=== PATIENT | female | born 1950 | race Caucasian/White ===

== ENCOUNTER → 2018-08-31 11:09 | Outpatient (CLI) | payer MEDICARE, BC, SELFPAY ==
[2018-08-31 12:23] LABS: Alanine Aminotransferase 23 IU/L (9-52); Albumin 4.1 g/dL (3.5-5.0); Albumin Globulin Ratio 1.4 (1.0-2.8); Alkaline Phosphatase 99 U/L (38-126); Aspartate Aminotransferase 25 IU/L (14-36); BUN Creatinine Ratio 18.9 (6-22); Bilirubin Total 0.8 mg/dL (0.2-1.3); Blood Urea Nitrogen 17 mg/dL (7-17); Calcium 9.6 mg/dL (8.4-10.2); Carbon Dioxide 33 mmol/L (22-32); Chloride 99 mmol/L (98-107); Cholesterol 146 mg/dL (140-199); Estimated Glomerular Filt Rate > 60.0 mL/min (>60); Globulin 2.9 g/dL (1.7-4.1); Glucose 107 mg/dL (80-110); HDL Cholesterol 40 mg/dL (40-60); HEMOLYSIS < 15 (0-50); LDL Cholesterol Calculated 82 mg/dL (<100); Potassium 3.7 mmol/L (3.4-5.1); Sodium 140 mmol/L (137-145); Triglycerides 120 mg/dL (35-150)
[2018-08-31 12:29] LABS: Hemoglobin A1C% w Est Avg Glu 5.7 % (4.0-6.0)
[2018-08-31 12:39] LABS: Creatinine Urine Random 337.9 mg/dL
[2018-08-31 12:42] LABS: Microalbumi Creatinin Ratio Ur 2.3 ug/mg CR (<30); Microalbumin Urine Random 0.8 mg/dL (0-1.6)
[2018-08-31 19:29] LABS: Free T4, Direct Thyroxine 1.76 ng/dL (0.78-2.19)
[2018-08-31 19:43] LABS: Thyroid Stimulating Hormone 3.15 uIU/mL (0.47-4.68)
== END ==
PROVIDERS: PCP Physician Assistant; Visit Provider Physician Assistant
DX: E03.9 Hypothyroidism, unspecified (principal); I10 Essential (primary) hypertension; R73.02 Impaired glucose tolerance (oral)
CPT/HCPCS: 36415; 80053; 80061; 82043; 82570; 83036; 84439; 84443

== ENCOUNTER → 2018-09-24 13:45 | Outpatient (CLI) | payer MEDICARE, BC, SELFPAY ==
--- NOTE | 2018-09-24 | DI.MG.S_ITS ---
BILATERAL DIGITAL SCREENING MAMMOGRAM 3D/2D WITH CAD: 09/24/2018 CLINICAL: Routine screening. Family history of breast cancer. Comparison is made to exams dated: 08/24/2017 mammogram, 08/20/2016 mammogram, and 11/05/2015 mammogram - [facility]. There are scattered fibroglandular elements in both breasts. Current study was also evaluated with a Computer Aided Detection (CAD) system. No significant masses, calcifications, or other findings are seen in either breast. There has been no significant interval change. IMPRESSION: NEGATIVE There is no mammographic evidence of malignancy. A 1 year screening mammogram is recommended. This exam was interpreted at Station ID: [id number]. NOTE: For mammograms, a report in lay terms will be sent to the patient. Approximately 15% of breast malignancies will not be visualized mammographically. In the management of a palpable breast mass, a negative mammogram must not discourage biopsy of a clinically suspicious lesion. Electronically Signed By: Tariq rondon/manny:09/24/2018 16:37:02 letter sent: Normal Exam ACR BI-RADS Category 1: Negative [id number]
== END ==
PROVIDERS: PCP Physician Assistant; Visit Provider Physician Assistant
DX: Z12.31 Encounter for screening mammogram for malignant neoplasm of breast (principal); Z80.3 Family history of malignant neoplasm of breast
CPT/HCPCS: 77063; 77067

== ENCOUNTER → 2018-10-13 09:21 | Outpatient (CLI) | payer MEDICARE, BC, SELFPAY ==
--- NOTE | 2018-10-13 | DI.CT.S_ITS ---
PROCEDURE: CT LE RT WO CON INDICATIONS: CLOSED FRACTURE OF RIGHT ANKLE WITH DELAYED HEALIN TECHNIQUE: Noncontrast 1-1.5 mm axial sections acquired from above the tibiotalar joint to the bottom of the calcaneus, with coronal and sagittal reformats. COMPARISON: SNO Outside Film, RG, ANKLE MIN 3VW (RT), 06/13/2018, 14:18. SNO Outside Film, RG, ANKLE MIN 3VW (RT), 08/31/2018, 15:12. FINDINGS: Image quality: Diagnostic. Bones: Postoperative changes are present related to previous open reduction and internal fixation procedure involving the distal fibula shaft fracture. Lateral view plate orthopedic plate is secured in place by multiple screws, including a syndesmotic screw. The distal fracture line remains at least partly open. The proximal fracture line is well-visualized with adjacent sclerosis. No definite callus formation is evident. No lucency surrounding the orthopedic screws is appreciated. No fractures are identified. Mild degenerative changes of the tibiotalar joint are noted. No suspicious osseous lesions are identified. Soft tissues: The soft tissues of the ankle are within normal limits with the exception of subcutaneous edema. No drainable or loculated fluid collections are identified. Please not that the ligamentous, tendinous, and cartilaginous structures of the ankle are not adequately evaluated on CT. There may be mild enlargement of the peroneal tendons. No muscle atrophy is evident. No soft tissue masses are evident. IMPRESSION: 1. Unchanged alignment of a complex distal tibial fracture, status post ORIF. The orthopedic hardware is intact. Fracture lines remain apparent without significant callus formation. 2. Mild thickening of the peroneal tendons may be related to tendinopathy. Dictated by: Ruddy Ulrich M.D. on 10/13/2018 at 13:22 Approved by: Ruddy Ulrich M.D. on 10/13/2018 at 13:40
== END ==
PROVIDERS: PCP Physician Assistant; Visit Provider Orthopaedic Surgery Foot and Ankle Surgery
DX: S82.391G Other fracture of lower end of right tibia, subsequent encounter for closed fracture with delayed healing (principal)
CPT/HCPCS: 73700

== ENCOUNTER → 2018-11-01 12:00 | Outpatient (CLI) | payer MEDICARE, BC, SELFPAY ==
[2018-11-01 12:57] LABS: Add Manual Diff / Slide Review NO; Basophils Percent Auto 1.3 % (0-2); Eosinophils Percent Auto 2.6 % (2-4); Hematocrit 38.9 % (36-46); Hemoglobin 13.5 g/dL (12.0-16.0); Lymphocytes Percent Auto 28.8 % (25-40); Mean Corpuscular HGB Conc 34.6 % (30-36); Mean Corpuscular Hemoglobin 32.7 PG (26-34); Mean Corpuscular Volume 94.6 fL (80-100); Monocytes Percent Auto 6.2 % (3-14); Neutrophils Absolute Auto 4200 /uL (3000-5900); Neutrophils Percent Auto 61.1 % (50-75); Platelet Count 337 X10^3/uL (150-400); Red Blood Cell Count 4.11 X10^6/uL (4.0-5.2); Red Cell Distribution Width 13.1 % (11.6-14.8); White Blood Cell Count 6.9 X10^3/uL (4.5-11.0)
[2018-11-01 13:12] LABS: BUN Creatinine Ratio 22.2 (6-22); Blood Urea Nitrogen 20 mg/dL (7-17); Calcium 9.7 mg/dL (8.4-10.2); Carbon Dioxide 30 mmol/L (22-32); Chloride 100 mmol/L (98-107); Estimated Glomerular Filt Rate > 60.0 mL/min (>60); Glucose 104 mg/dL (80-110); HEMOLYSIS < 15 (0-50); Sodium 143 mmol/L (137-145)
[2018-11-01 13:14] LABS: C-Reactive Protein Quant < 0.5 mg/dL (<1.0)
[2018-11-01 13:33] LABS: Erythrocyte Sedimentation Rate 17 MM/HR (0-20)
== END ==
PROVIDERS: PCP Physician Assistant; Visit Provider Physician Assistant
DX: Z01.818 Encounter for other preprocedural examination (principal)
CPT/HCPCS: 36415; 80048; 85025; 85651; 86140; 93005; 93010

== ENCOUNTER 2018-11-19 12:41 | Emergency (ER) | payer MEDICARE, BC, SELFPAY ==
[2018-11-19 12:59] VITALS: BP 140/88; PULSE 67; RESP 20; TEMP 36.9; O2SAT 99
--- NOTE | 2018-11-19 13:08 | ED.ARRPALP ---
HPI - Arrhythmia/Palpitations General Chief Complaint: Arrhythmia/Palpitations Stated Complaint: HEART RACING Time Seen by Provider: 11/19/18 13:06 Source: patient, family (daughter) and old records reviewed Mode of arrival: ambulatory Limitations: no limitations History of Present Illness HPI narrative: This is a 68-year-old female comes to the emergency department with complaint of palpitations. Patient states she was checking in to get an echo for medical clearance for replacement of a plate and bone graft in her lower extremity. Her surgery scheduled for December 01 she is supposed to see her regular engine turner Dr. Hanks on the , she had an EKG on Thursday and was supposed to have an echo today. Patient was told she was scheduled by the engine turner office but when she came in she is not on the schedule here at the hospital. She states she was sitting she felt warm all over, she got very stressed and frustrated felt like she was having a pounding in her chest and a little short of breath. Patient states it lasted about 15-20 minutes. She began to calm herself which she states is what she normally does any situations and it resolved patient states she has had these symptoms in the past she has had episodes about every 6 months or so. Typically when she is stressed or anxious does not seem to be associated with exertion or if she is sitting or other events. She states she does have a cardiac stent about 20 years ago. At that time she had a feeling of heartburn for about 4 days, had angioplasty and was stented. She still taken aspirin 81 mg, thyroid medication. She recently had her atenolol DC secondary to low heart rate takes lisinopril, potassium and Prozac. Patient states she has a family history of her dad having an MD at the age of 54. The patient denies any chest pain or pressure today. She did not feel she was going to pass out. Her daughter states she looked pale. Related Data Home Medications Medication Instructions Recorded Confirmed aspirin 81 mg PO QPM #0 05/05/17 11/19/18 multivitamin [Multiple Vitamins] 1 tab PO QDAY #0 05/05/17 11/19/18 omega 2-qwu-sdy-fish oil [Fish Oil] 1,000 mg PO DAILY #0 05/05/17 11/19/18 [calcium/ D3] 1 tab PO Q DAY #0 06/25/17 11/19/18 levothyroxine 88 mcg PO DAILY 11/19/18 11/19/18 lisinopril 20 mg PO QPM 11/19/18 11/19/18 Previous Rx's Medication Instructions Recorded atorvastatin 80 mg PO HS #90 tab 08/03/17 fluoxetine 40 mg capsule 40 mg PO QDAY #30 cap 08/30/18 potassium chloride ER 10 mEq 10 meq PO BID #60 tab 08/30/18 tablet,extended release varicella-zoster glycoE [id number] 50 mcg IM ONCE #1 each 09/22/18 adj(PF) 50 mcg/0.5 mL IM susp, kit Allergies Allergy/AdvReac Type Severity Reaction Status Date / Time No Known Drug Allergies Allergy Unverified 11/01/18 11:13 Review of Systems Review of Systems All systems reviewed & are unremarkable except as noted in HPI and below Constitutional Denies chills, Denies excessive sweating and Reports other (pale) Cardiovascular Denies chest pain, Denies chest pain at rest, Denies chest pain with activity, Reports diaphoresis, Denies syncope, Reports rapid heart rate (pounding heart rate), Denies edema, Denies irregular heart rhythm, Denies leg edema, Denies lightheadedness, Denies radiating jaw, neck or arm pain, Denies palpitations, Reports dyspnea and Denies orthopnea Respiratory Denies change in phlegm color, Denies chest congestion, Denies cough, Denies excessive phlegm production and Reports dyspnea Gastrointestinal Gastrointestinal: Denies abdominal pain, Denies change in bowel habits, Denies diarrhea, Denies nausea and Denies vomiting Genitourinary Denies hematuria, Denies dysuria, Denies flank pain and Denies urinary urgency Neurologic Denies syncope Endocrine Denies excessive sweating and Denies palpitations [facility] Medical History Diverticulosis of colon without diverticulitis (Chronic 04/27/17) Hypertension (Chronic) Hypothyroidism (Chronic) Internal hemorrhoids (Chronic 04/27/17) Ankle fracture, right (Resolved 06/13/18) Colon polyps (Resolved 04/27/17) Surgical History History of colonoscopy (Resolved 2006) History of colonoscopy (Resolved 04/27/17) History of ear surgery (Resolved 1996) History of heart artery stent (Resolved 11/1997) History of hysterectomy (Resolved 05/1994) Status post open reduction with internal fixation (ORIF) of fracture of ankle (Resolved 06/15/18) Family History Father Heart attack Grandmother Heart disease Mother Cancer Grandfather Pneumonia Grandmother Cancer Sister No problems noted. Social History Smoking Status: Former smoker (Quit in 1994) Tobacco: How many years used: 30 second hand exposure: No alcohol intake: current (a glass of wine occasionally.) substance use type: does not use Exam Narrative Exam Narrative: GENERAL: Alert and oriented x three, well-nourished, well-appearing female in mild distress. HEENT: Head normocephalic, atraumatic, EOMI, pupils reactive, face symmetric, moist mucous membranes NECK: Supple, full range of motion CARDIOVASCULAR: Regular rate and rhythm without murmurs, rubs or gallops. RESPIRATORY: Breath sounds equal bilaterally, no wheezes rales or rhonchi. ABDOMEN: Soft, nontender. Normoactive bowel sounds all 4 quadrants. No guarding or rebound, rigidity, no mass : No CVA tenderness EXTREMITIES: Normal range of motion, no clubbing or edema. Neurovascularly intact NEUROLOGICAL: Cranial nerves II through XII grossly intact. Moving all extremities SKIN: Warm, dry, no petechiae, no rashes or lesions. Initial Vital Signs Initial Vital Signs: Vital Signs Temperature 98.4 F 11/19/18 12:59 Pulse Rate 67 11/19/18 12:59 Respiratory Rate 20 11/19/18 12:59 Blood Pressure 140/88 11/19/18 12:59 Pulse Oximetry 99 11/19/18 12:59 Course Orders Ordered: ED Orders 11/19/18 13:18 XR chest 1V Stat EKG-12 Lead Stat 11/19/18 13:40 Complete Blood Count AUTO DIFF Stat Comprehensive Metabolic Panel Stat Free T4 Free Thyroxine Stat Lipase Stat Magnesium Stat Partial Thromboplastin Time Stat Prothrombin Time INR Stat Thyroid Stimulating Hormone Stat Troponin & CK Cardiac Panel Stat Discontinued Medications Aspirin (Aspirin Chew) 324 mg PO NOW ONE Stop: 11/19/18 13:18 Last Admin: 11/19/18 13:25 Dose: 324 mg Vital Signs - 8 hr 11/19/18 12:59 11/19/18 13:48 11/19/18 14:48 Temperature 98.4 F Pulse Rate 67 60 56 L Respiratory Rate 20 21 20 Blood Pressure 140/88 Blood Pressure [Left Arm] 127/56 L 126/67 Pulse Oximetry 99 100 100 11/19/18 15:00 Temperature Pulse Rate 65 Respiratory Rate 16 Blood Pressure 126/67 Blood Pressure [Left Arm] Pulse Oximetry 98 MDM - Arrhythmia/Palpitations Lab Data Result diagrams: 11/19/18 13:40 11/19/18 13:40 Lab Results 11/19/18 11/19/18 11/19/18 Range/Units 13:40 13:40 13:40 WBC 8.4 (4.5-11.0) X10^3/uL RBC 3.75 L (4.0-5.2) X10^6/uL Hgb 12.3 (12.0-16.0) g/dL Hct 35.4 L (36-46) % MCV 94.4 (80-100) fL MCH 32.8 (26-34) PG MCHC 34.7 (30-36) % RDW 13.1 (11.6-14.8) % Plt Count 269 (150-400) X10^3/uL Neut % (Auto) 70.8 (50-75) % Lymph % (Auto) 14.6 L (25-40) % [place] % (Auto) 7.9 (3-14) % Eos % (Auto) 5.5 H (2-4) % Baso % (Auto) 1.2 (0-2) % Neut # (Auto) 5900 (4012-8212) /uL PT 10.9 (10.1-12.7) SECONDS INR 1.0 (0.9-1.3) APTT 30 (26.4-36.2) SECONDS Sodium 142 (137-145) mmol/L Potassium 4.1 (3.4-5.1) mmol/L Chloride 105 (98-107) mmol/L Carbon Dioxide 26 (22-32) mmol/L BUN 17 (7-17) mg/dL Creatinine 0.80 (0.52-1.04) mg/dL Estimated GFR > 60.0 (>60) mL/min BUN/Creatinine Ratio 21.3 (6-22) Glucose 97 (80-110) mg/dL Calcium 9.1 (8.4-10.2) mg/dL Magnesium 2.2 (1.6-2.3) mg/dL Total Bilirubin 0.4 (0.2-1.3) mg/dL AST 28 (14-36) IU/L ALT 26 (9-52) IU/L Alkaline Phosphatase 94 (38-126) U/L Total Creatine Kinase 75 (30-135) U/L CK-MB (CK-2) TNP CK-MB (CK-2) Rel Index TNP Troponin I < 0.012 (0.01-0.034) ng/mL Total Protein 6.6 (6.3-8.2) g/dL Albumin 3.9 (3.5-5.0) g/dL Globulin 2.7 (1.7-4.1) g/dL Albumin/Globulin Ratio 1.4 (1.0-2.8) Lipase 164 (23-300) U/L TSH (0.47-4.68) uIU/mL Free T4 (0.78-2.19) ng/dL 11/19/18 11/19/18 Range/Units 13:40 13:40 WBC (4.5-11.0) X10^3/uL RBC (4.0-5.2) X10^6/uL Hgb (12.0-16.0) g/dL Hct (36-46) % MCV (80-100) fL MCH (26-34) PG MCHC (30-36) % RDW (11.6-14.8) % Plt Count (150-400) X10^3/uL Neut % (Auto) (50-75) % Lymph % (Auto) (25-40) % [place] % (Auto) (3-14) % Eos % (Auto) (2-4) % Baso % (Auto) (0-2) % Neut # (Auto) (7094-0212) /uL PT (10.1-12.7) SECONDS INR (0.9-1.3) APTT (26.4-36.2) SECONDS Sodium (137-145) mmol/L Potassium (3.4-5.1) mmol/L Chloride (98-107) mmol/L Carbon Dioxide (22-32) mmol/L BUN (7-17) mg/dL Creatinine (0.52-1.04) mg/dL Estimated GFR (>60) mL/min BUN/Creatinine Ratio (6-22) Glucose (80-110) mg/dL Calcium (8.4-10.2) mg/dL Magnesium (1.6-2.3) mg/dL Total Bilirubin (0.2-1.3) mg/dL AST (14-36) IU/L ALT (9-52) IU/L Alkaline Phosphatase (38-126) U/L Total Creatine Kinase (30-135) U/L CK-MB (CK-2) CK-MB (CK-2) Rel Index Troponin I (0.01-0.034) ng/mL Total Protein (6.3-8.2) g/dL Albumin (3.5-5.0) g/dL Globulin (1.7-4.1) g/dL Albumin/Globulin Ratio (1.0-2.8) Lipase (23-300) U/L TSH 12.30 H (0.47-4.68) uIU/mL Free T4 1.06 (0.78-2.19) ng/dL Imaging Data Chest x-ray: Radiologist's impression: [place] [address] XRay Report Signed Patient: Debby Boo MR#: [id number] : 1950 Acct:[id number] Age/Sex: 68 / F Date of Service: 11/19/18 Loc: ED Accession Number: [id number] Procedure: XR chest 1V Ordering Provider: Alyssa Butler D.O. PROCEDURE: XR CHEST 1V INDICATIONS: palpitations TECHNIQUE: One view of the chest was acquired. COMPARISON: None. FINDINGS: Surgical changes and devices: None. Lungs and pleura: No pleural effusions or pneumothorax. Lungs are clear. Mediastinum: Mediastinal contours appear normal. Heart size is normal. Bones and chest wall: No suspicious bony lesions. Overlying soft tissues appear unremarkable. IMPRESSION: Mildly reduced inspiratory volume. Dictated by: Moshe Matthews M.D. on 11/19/2018 at 13:47 Approved by: Moshe Matthews M.D. on 11/19/2018 at 13:47 ECG Data Attestation: I personally reviewed and interpreted this ECG as follows: Prior ECG tracings: available for review Interpretation: Sinus rhythm with a rate of 66 P are interval of 188, QRS of 121, QTC of 438. No ST elevation or depression appreciated. Changes with axis deviation patient does have a Q-wave in V1-the 4. Patient has a prior EKG from 11/17/2018 that appears similar except for at lead V6, otherwise there are no changes. Discharge Plan Departure Patient Disposition: Home Clinical Impression: Palpitations Discharge Date/Time: 11/19/18 15:02 Interventions: ED Discharge Assessment Last Done: 11/19/18 15:00 Instructions: DI for Palpitations Activity Restrictions/Additional Instructions: Follow up at you ECHO scheduled on November 25 at 9:[address] Hanks your engine turner office to see if they can readjust your cardiology appointment or schedule your echo at a sooner date. Continue your home medications as prescribed. Return to ER for recurrent symptoms, syncope or passing out, chest pain, shortness of breath, persistent vomiting, black or bloody stools or other new symptoms. Prescriptions: No Action varicella-zoster [id number] (PF) [Shingrix (PF)] 50 mcg/0.5 mL suspension for reconstitution 50 mcg IM ONCE Qty: 1 RF: 1 multivitamin [Multiple Vitamins] 1 EACH tablet 1 tab PO QDAY Qty: 0 RF: 0 aspirin 81 MG tablet,delayed release (DR/EC) 81 mg PO QPM Qty: 0 RF: 0 omega 6-leh-otn-fish oil [Fish Oil] 1,000 MG capsule 1,000 mg PO DAILY Qty: 0 RF: 0 [calcium/ D3] 1 tab PO Q DAY Qty: 0 RF: 0 atorvastatin 80 MG tablet 80 mg PO HS Qty: 90 RF: 1 fluoxetine 40 mg capsule 40 mg PO QDAY Qty: 30 RF: 0 potassium chloride [Klor-Con 10] 10 mEq tablet extended release 10 meq PO BID Qty: 60 RF: 0 lisinopril 20 mg tablet 20 mg PO QPM RF: 0 levothyroxine 88 mcg tablet 88 mcg PO DAILY RF: 0 Referrals: Kaylyn Santos PA-C [Primary Care Provider] - Bryan Hanks MD [Physician] -
--- NOTE | 2018-11-19 13:18 | DI.RAD.S_ITS ---
PROCEDURE: XR CHEST 1V INDICATIONS: palpitations TECHNIQUE: One view of the chest was acquired. COMPARISON: None. FINDINGS: Surgical changes and devices: None. Lungs and pleura: No pleural effusions or pneumothorax. Lungs are clear. Mediastinum: Mediastinal contours appear normal. Heart size is normal. Bones and chest wall: No suspicious bony lesions. Overlying soft tissues appear unremarkable. IMPRESSION: Mildly reduced inspiratory volume. Dictated by: Moshe Matthews M.D. on 11/19/2018 at 13:47 Approved by: Moshe Matthews M.D. on 11/19/2018 at 13:47
[2018-11-19] MEDS: ASPIRIN 81 MG TAB 324 MG PO (13:25)
--- NOTE | 2018-11-19 13:29 | ED_ITS ---
HPI - Arrhythmia/Palpitations General Chief Complaint: Arrhythmia/Palpitations Stated Complaint: HEART RACING Time Seen by Provider: 11/19/18 13:06 Source: patient, family (daughter) and old records reviewed Mode of arrival: ambulatory Limitations: no limitations History of Present Illness HPI narrative: This is a 68-year-old female comes to the emergency department with complaint of palpitations. Patient states she was checking in to get an echo for medical clearance for replacement of a plate and bone graft in her lower extremity. Her surgery scheduled for December 01 she is supposed to see her regular slip cover cutter Dr. Hanks on the , she had an EKG on Thursday and was supposed to have an echo today. Patient was told she was scheduled by the slip cover cutter office but when she came in she is not on the schedule here at the hospital. She states she was sitting she felt warm all over, she got very stressed and frustrated felt like she was having a pounding in her chest and a little short of breath. Patient states it lasted about 15-20 minutes. She began to calm herself which she states is what she normally does any situations and it resolved patient states she has had these symptoms in the past she has had episodes about every 6 months or so. Typically when she is stressed or anxious does not seem to be associated with exertion or if she is sitting or other events. She states she does have a cardiac stent about 20 years ago. At that time she had a feeling of heartburn for about 4 days, had angioplasty and was stented. She still taken aspirin 81 mg, thyroid medication. She recently had her atenolol DC secondary to low heart rate takes lisinopril, potassium and Prozac. Patient states she has a family history of her dad having an [place] at the age of 54. The patient denies any chest pain or pressure today. She did not feel she was going to pass out. Her daughter states she looked pale. Related Data Home Medications Medication Instructions Recorded Confirmed aspirin 81 mg PO QPM #0 05/05/17 11/19/18 multivitamin [Multiple Vitamins] 1 tab PO QDAY #0 05/05/17 11/19/18 omega 2-qoy-odz-fish oil [Fish Oil] 1,000 mg PO DAILY #0 05/05/17 11/19/18 [calcium/ D3] 1 tab PO Q DAY #0 06/25/17 11/19/18 levothyroxine 88 mcg PO DAILY 11/19/18 11/19/18 lisinopril 20 mg PO QPM 11/19/18 11/19/18 Previous Rx's Medication Instructions Recorded atorvastatin 80 mg PO HS #90 tab 08/03/17 fluoxetine 40 mg capsule 40 mg PO QDAY #30 cap 08/30/18 potassium chloride ER 10 mEq 10 meq PO BID #60 tab 08/30/18 tablet,extended release varicella-zoster glycoE [id number] 50 mcg IM ONCE #1 each 09/22/18 adj(PF) 50 mcg/0.5 mL IM susp, kit Allergies Allergy/AdvReac Type Severity Reaction Status Date / Time No Known Drug Allergies Allergy Unverified 11/01/18 11:13 Review of Systems Review of Systems All systems reviewed & are unremarkable except as noted in HPI and below Constitutional Denies chills, Denies excessive sweating and Reports other (pale) Cardiovascular Denies chest pain, Denies chest pain at rest, Denies chest pain with activity, Reports diaphoresis, Denies syncope, Reports rapid heart rate (pounding heart rate), Denies edema, Denies irregular heart rhythm, Denies leg edema, Denies lightheadedness, Denies radiating jaw, neck or arm pain, Denies palpitations, Reports dyspnea and Denies orthopnea Respiratory Denies change in phlegm color, Denies chest congestion, Denies cough, Denies excessive phlegm production and Reports dyspnea Gastrointestinal Gastrointestinal: Denies abdominal pain, Denies change in bowel habits, Denies diarrhea, Denies nausea and Denies vomiting Genitourinary Denies hematuria, Denies dysuria, Denies flank pain and Denies urinary urgency Neurologic Denies syncope Endocrine Denies excessive sweating and Denies palpitations [facility] Medical History Diverticulosis of colon without diverticulitis (Chronic 04/27/17) Hypertension (Chronic) Hypothyroidism (Chronic) Internal hemorrhoids (Chronic 04/27/17) Ankle fracture, right (Resolved 06/13/18) Colon polyps (Resolved 04/27/17) Surgical History History of colonoscopy (Resolved 2006) History of colonoscopy (Resolved 04/27/17) History of ear surgery (Resolved 1996) History of heart artery stent (Resolved 11/1997) History of hysterectomy (Resolved 05/1994) Status post open reduction with internal fixation (ORIF) of fracture of ankle ( Resolved 06/15/18) Family History Father Heart attack Grandmother Heart disease Mother Cancer Grandfather Pneumonia Grandmother Cancer Sister No problems noted. Social History Smoking Status: Former smoker (Quit in 1994) Tobacco: How many years used: 30 second hand exposure: No alcohol intake: current (a glass of wine occasionally.) substance use type: does not use Exam Narrative Exam Narrative: GENERAL: Alert and oriented x three, well-nourished, well- appearing female in mild distress. HEENT: Head normocephalic, atraumatic, EOMI, pupils reactive, face symmetric, moist mucous membranes NECK: Supple, full range of motion CARDIOVASCULAR: Regular rate and rhythm without murmurs, rubs or gallops. RESPIRATORY: Breath sounds equal bilaterally, no wheezes rales or rhonchi. ABDOMEN: Soft, nontender. Normoactive bowel sounds all 4 quadrants. No guarding or rebound, rigidity, no mass : No CVA tenderness EXTREMITIES: Normal range of motion, no clubbing or edema. Neurovascularly intact NEUROLOGICAL: Cranial nerves II through XII grossly intact. Moving all extremities SKIN: Warm, dry, no petechiae, no rashes or lesions. Initial Vital Signs Initial Vital Signs: Vital Signs Temperature 98.4 F 11/19/18 12:59 Pulse Rate 67 11/19/18 12:59 Respiratory Rate 20 11/19/18 12:59 Blood Pressure 140/88 11/19/18 12:59 Pulse Oximetry 99 11/19/18 12:59 Course Orders Ordered: ED Orders 11/19/18 13:18 XR chest 1V Stat EKG-12 Lead Stat 11/19/18 13:40 Complete Blood Count AUTO DIFF Stat Comprehensive Metabolic Panel Stat Free T4 Free Thyroxine Stat Lipase Stat Magnesium Stat Partial Thromboplastin Time Stat Prothrombin Time INR Stat Thyroid Stimulating Hormone Stat Troponin & CK Cardiac Panel Stat Discontinued Medications Aspirin (Aspirin Chew) 324 mg PO NOW ONE Stop: 11/19/18 13:18 Last Admin: 11/19/18 13:25 Dose: 324 mg Vital Signs - 8 hr 11/19/18 12:59 11/19/18 13:48 11/19/18 14:48 Temperature 98.4 F Pulse Rate 67 60 56 L Respiratory Rate 20 21 20 Blood Pressure 140/88 Blood Pressure [Left Arm] 127/56 L 126/67 Pulse Oximetry 99 100 100 11/19/18 15:00 Temperature Pulse Rate 65 Respiratory Rate 16 Blood Pressure 126/67 Blood Pressure [Left Arm] Pulse Oximetry 98 MDM - Arrhythmia/Palpitations Lab Data Result diagrams: 11/19/18 13:40 11/19/18 13:40 Lab Results 11/19/18 11/19/18 11/19/18 Range/Units 13:40 13:40 13:40 WBC 8.4 (4.5-11.0) X10^3/uL RBC 3.75 L (4.0-5.2) X10^6/uL Hgb 12.3 (12.0-16.0) g/dL Hct 35.4 L (36-46) % MCV 94.4 (80-100) fL MCH 32.8 (26-34) PG MCHC 34.7 (30-36) % RDW 13.1 (11.6-14.8) % Plt Count 269 (150-400) X10^3/uL Neut % (Auto) 70.8 (50-75) % Lymph % (Auto) 14.6 L (25-40) % Person % (Auto) 7.9 (3-14) % Eos % (Auto) 5.5 H (2-4) % Baso % (Auto) 1.2 (0-2) % Neut # (Auto) 5900 (2974-0039) /uL PT 10.9 (10.1-12.7) SECONDS INR 1.0 (0.9-1.3) APTT 30 (26.4-36.2) SECONDS Sodium 142 (137-145) mmol/L Potassium 4.1 (3.4-5.1) mmol/L Chloride 105 (98-107) mmol/L Carbon Dioxide 26 (22-32) mmol/L BUN 17 (7-17) mg/dL Creatinine 0.80 (0.52-1.04) mg/dL Estimated GFR > 60.0 (>60) mL/min BUN/Creatinine Ratio 21.3 (6-22) Glucose 97 (80-110) mg/dL Calcium 9.1 (8.4-10.2) mg/dL Magnesium 2.2 (1.6-2.3) mg/dL Total Bilirubin 0.4 (0.2-1.3) mg/dL AST 28 (14-36) IU/L ALT 26 (9-52) IU/L Alkaline Phosphatase 94 (38-126) U/L Total Creatine Kinase 75 (30-135) U/L CK-MB (CK-2) TNP CK-MB (CK-2) Rel Index TNP Troponin I < 0.012 (0.01-0.034) ng/mL Total Protein 6.6 (6.3-8.2) g/dL Albumin 3.9 (3.5-5.0) g/dL Globulin 2.7 (1.7-4.1) g/dL Albumin/Globulin Ratio 1.4 (1.0-2.8) Lipase 164 (23-300) U/L TSH (0.47-4.68) uIU/mL Free T4 (0.78-2.19) ng/dL 11/19/18 11/19/18 Range/Units 13:40 13:40 WBC (4.5-11.0) X10^3/uL RBC (4.0-5.2) X10^6/uL Hgb (12.0-16.0) g/dL Hct (36-46) % MCV (80-100) fL MCH (26-34) PG MCHC (30-36) % RDW (11.6-14.8) % Plt Count (150-400) X10^3/uL Neut % (Auto) (50-75) % Lymph % (Auto) (25-40) % Person % (Auto) (3-14) % Eos % (Auto) (2-4) % Baso % (Auto) (0-2) % Neut # (Auto) (3379-7067) /uL PT (10.1-12.7) SECONDS INR (0.9-1.3) APTT (26.4-36.2) SECONDS Sodium (137-145) mmol/L Potassium (3.4-5.1) mmol/L Chloride (98-107) mmol/L Carbon Dioxide (22-32) mmol/L BUN (7-17) mg/dL Creatinine (0.52-1.04) mg/dL Estimated GFR (>60) mL/min BUN/Creatinine Ratio (6-22) Glucose (80-110) mg/dL Calcium (8.4-10.2) mg/dL Magnesium (1.6-2.3) mg/dL Total Bilirubin (0.2-1.3) mg/dL AST (14-36) IU/L ALT (9-52) IU/L Alkaline Phosphatase (38-126) U/L Total Creatine Kinase (30-135) U/L CK-MB (CK-2) CK-MB (CK-2) Rel Index Troponin I (0.01-0.034) ng/mL Total Protein (6.3-8.2) g/dL Albumin (3.5-5.0) g/dL Globulin (1.7-4.1) g/dL Albumin/Globulin Ratio (1.0-2.8) Lipase (23-300) U/L TSH 12.30 H (0.47-4.68) uIU/mL Free T4 1.06 (0.78-2.19) ng/dL Imaging Data Chest x-ray: Radiologist's impression: [place] [address] XRay Report Signed Patient: Debby Boo MR#: [id number] : 1950 Acct:[id number] Age/Sex: 68 / F Date of Service: 11/19/18 Loc: ED Accession Number: [id number] Procedure: XR chest 1V Ordering Provider: Alyssa Butler D.O. PROCEDURE: XR CHEST 1V INDICATIONS: palpitations TECHNIQUE: One view of the chest was acquired. COMPARISON: None. FINDINGS: Surgical changes and devices: None. Lungs and pleura: No pleural effusions or pneumothorax. Lungs are clear. Mediastinum: Mediastinal contours appear normal. Heart size is normal. Bones and chest wall: No suspicious bony lesions. Overlying soft tissues appear unremarkable. IMPRESSION: Mildly reduced inspiratory volume. Dictated by: Moshe Matthews M.D. on 11/19/2018 at 13:47 Approved by: Moshe Matthews M.D. on 11/19/2018 at 13:47 ECG Data Attestation: I personally reviewed and interpreted this ECG as follows: Prior ECG tracings: available for review Interpretation: Sinus rhythm with a rate of 66 P are interval of 188, QRS of 121 , QTC of 438. No ST elevation or depression appreciated. Changes with axis deviation patient does have a Q-wave in V1-the 4. Patient has a prior EKG from 11/17/2018 that appears similar except for at lead V6, otherwise there are no changes. Discharge Plan Departure Patient Disposition: Home Clinical Impression: Palpitations Discharge Date/Time: 11/19/18 15:02 Interventions: ED Discharge Assessment Last Done: 11/19/18 15:00 Instructions: DI for Palpitations Activity Restrictions/Additional Instructions: Follow up at you ECHO scheduled on November 25 at 9:[address] Hakns your slip cover cutter office to see if they can readjust your cardiology appointment or schedule your echo at a sooner date. Continue your home medications as prescribed. Return to ER for recurrent symptoms, syncope or passing out, chest pain, shortness of breath, persistent vomiting, black or bloody stools or other new symptoms. Prescriptions: No Action varicella-zoster [id number] (PF) [Shingrix (PF)] 50 mcg/0.5 mL suspension for reconstitution 50 mcg IM ONCE Qty: 1 RF: 1 multivitamin [Multiple Vitamins] 1 EACH tablet 1 tab PO QDAY Qty: 0 RF: 0 aspirin 81 MG tablet,delayed release (DR/EC) 81 mg PO QPM Qty: 0 RF: 0 omega 4-wjh-mwv-fish oil [Fish Oil] 1,000 MG capsule 1,000 mg PO DAILY Qty: 0 RF: 0 [calcium/ D3] 1 tab PO Q DAY Qty: 0 RF: 0 atorvastatin 80 MG tablet 80 mg PO HS Qty: 90 RF: 1 fluoxetine 40 mg capsule 40 mg PO QDAY Qty: 30 RF: 0 potassium chloride [Klor-Con 10] 10 mEq tablet extended release 10 meq PO BID Qty: 60 RF: 0 lisinopril 20 mg tablet 20 mg PO QPM RF: 0 levothyroxine 88 mcg tablet 88 mcg PO DAILY RF: 0 Referrals: Kaylyn Santos PA-C [Primary Care Provider] - Bryan Hanks MD [Physician] -
[2018-11-19 13:48] VITALS: BP 127/56; PULSE 60; RESP 21; O2SAT 100
[2018-11-19 13:50] LABS: Add Manual Diff / Slide Review NO; Basophils Percent Auto 1.2 % (0-2); Eosinophils Percent Auto 5.5 % (2-4); Hematocrit 35.4 % (36-46); Hemoglobin 12.3 g/dL (12.0-16.0); Lymphocytes Percent Auto 14.6 % (25-40); Mean Corpuscular HGB Conc 34.7 % (30-36); Mean Corpuscular Hemoglobin 32.8 PG (26-34); Mean Corpuscular Volume 94.4 fL (80-100); Monocytes Percent Auto 7.9 % (3-14); Neutrophils Absolute Auto 5900 /uL (1500-7000); Neutrophils Percent Auto 70.8 % (50-75); Platelet Count 269 X10^3/uL (150-400); Red Blood Cell Count 3.75 X10^6/uL (4.0-5.2); Red Cell Distribution Width 13.1 % (11.6-14.8); White Blood Cell Count 8.4 X10^3/uL (4.5-11.0)
[2018-11-19 13:57] LABS: Prothrombin Time 10.9 SECONDS (10.1-12.7)
[2018-11-19 14:00] LABS: PTT Partial Thromboplastin Tim 30 SECONDS (26.4-36.2)
[2018-11-19 14:03] LABS: Alanine Aminotransferase 26 IU/L (9-52); Albumin 3.9 g/dL (3.5-5.0); Albumin Globulin Ratio 1.4 (1.0-2.8); Alkaline Phosphatase 94 U/L (38-126); Aspartate Aminotransferase 28 IU/L (14-36); BUN Creatinine Ratio 21.3 (6-22); Bilirubin Total 0.4 mg/dL (0.2-1.3); Blood Urea Nitrogen 17 mg/dL (7-17); Calcium 9.1 mg/dL (8.4-10.2); Carbon Dioxide 26 mmol/L (22-32); Chloride 105 mmol/L (98-107); Creatine Kinase 75 U/L (30-135); Estimated Glomerular Filt Rate > 60.0 mL/min (>60); Globulin 2.7 g/dL (1.7-4.1); Glucose 97 mg/dL (80-110); Lipase 164 U/L (23-300); Magnesium 2.2 mg/dL (1.6-2.3); Potassium 4.1 mmol/L (3.4-5.1); Sodium 142 mmol/L (137-145); Total Protein 6.6 g/dL (6.3-8.2)
[2018-11-19 14:16] LABS: HEMOLYSIS < 15 (0-50)
[2018-11-19 14:20] LABS: Troponin I < 0.012 ng/mL (0.01-0.034)
[2018-11-19 14:48] VITALS: BP 126/67; PULSE 56; RESP 20; O2SAT 100
[2018-11-19 15:00] VITALS: BP 126/67; PULSE 65; RESP 16; O2SAT 98
[2018-11-19 15:30] LABS: Free T4, Direct Thyroxine 1.06 ng/dL (0.78-2.19)
== END 2018-11-19 15:02 | disposition home or self-care (01) ==
PROVIDERS: Emergency Provider Emergency Medicine; PCP Physician Assistant
DX: R00.2 Palpitations (principal)
CPT/HCPCS: 36591; 71045; 80053; 82550; 83690; 83735; 84439; 84443; 84484; 85025; 85610; 85730; 93005; 99283; 99285

== ENCOUNTER → 2018-11-25 09:25 | Outpatient (CLI) | payer MEDICARE, BC, SELFPAY ==
--- NOTE | 2018-11-25 09:28 | DI.ECHO.S_ITS ---
[facility] +---------+ : : [address] [place] : : : : [id number] : : : : Phone: [phone]---------+ Echocardiogram Report + + :Name: ROSANNA CHIANG Study Date: 11/25/2018 Height: 62 in : :[facility] Weight: 172 lb : : Gender: Female BSA: 1.8 m2 : :: 1950 Age: 68 yrs BP: 142/80 mmHg: :Reason For Study: Hypertension : : Performed By: Kristie Luna : :Referring: ALESSANDRA CASTILLO : + + Interpretation Summary 1) Normal left ventricular thickness, size, wall motion, and systolic function (EF about 55%). 2) Normal right ventricular size and function. 3) Diastolic parameters suggest a pseudonormalization pattern, consistent with probable elevated filling pressures. 4) No significant valvular abnormalities. 5) No prior Echo available for comparison. Procedure: A two-dimensional transthoracic echocardiogram with color flow and Doppler was performed. The study quality was technically good. There is no prior echocardiogram noted for this patient. The patient was in normal sinus rhythm during the exam. Left Ventricle: The left ventricle is normal in size. There is normal left ventricular wall thickness. The ejection fraction is estimated to be 55-60%. Left ventricular systolic function is normal. Diastolic parameters suggest a pseudonormalization pattern, consistent with probable elevated filling pressures. Right Ventricle: The right ventricle grossly appears normal in size with probable normal systolic function. Atria: The left atrium is moderately dilated. Right atrial size is normal. The interatrial septum is intact with no evidence for an atrial septal defect. Mitral Valve: The mitral valve leaflets appear mildly thickened, but open well. There is trace mitral regurgitation. Aortic Valve: The aortic valve is trileaflet. The aortic valve opens well. There is no aortic valve stenosis. No aortic regurgitation is present. Tricuspid Valve: The tricuspid valve leaflets are thin and pliable. There is mild tricuspid regurgitation. The right ventricular systolic pressure is estimated to be at least 33 mmHg based on an estimated right atrial pressure of 3 mm Hg. Pulmonic Valve: The pulmonic valve is not well seen, but is grossly normal. There is trace pulmonic regurgitation. Great Vessels: The aortic root is normal size. The ascending aorta is at the upper limits of normal in size. The IVC is of normal diameter and collapses greater than 50% with a sniff. This suggests a low right atrial pressure of 3 mm Hg. Pericardium/ Pleura There is no pericardial effusion. There is no pleural effusion. MMode/2D Measurements & Calculations LVIDd: 5.0 cm Ao root diam: 3.5 cm LVIDs: 3.8 cm Aortic Jxn: 3.0 cm FS: 24.4 % asc Aorta Diam: 3.7 cm IVSd: 1.1 cm Ao Arch Diam (Prox Trans): 2.5 cm LVPWd: 0.71 cm LV villanueva. diameter/BSA (cm/m^2): 2.8 LV sys. diameter/BSA (cm/m^2): 2.1 LA dimension: 4.1 cm RA long axis: 4.6 cm LA A2 area: 20.0 cm2 RA area: 16.0 cm2 LA A4 area: 21.8 cm2 RA vol: 47.8 ml LA length (vol): 5.1 cm RA : 26.6 ml/m2 LA vol: 72.8 ml IVC diam: 1.7 cm LA vol index: 40.6 ml/m2 RVDd major: 5.5 cm RVD1 (basal): 3.7 cm RVD2 (mid): 3.6 cm Doppler Measurements & Calculations Ao V2 max: 155.0 cm/sec MV E max richard: 74.1 cm/sec Ao V2 mean: 95.0 cm/sec MV A max richard: 93.5 cm/sec Ao max P.6 mmHg MV E/A: 0.79 Ao mean P.3 mmHg Med Peak E' Richard: 4.5 cm/sec Ao V2 VTI: 33.2 cm E/E' med: 16.4 Lat Peak E' Richard: 7.5 cm/sec E/E' lat: 9.9 E/e' average: 13.1 MV dec time: 0.23 sec MV P1/2t: 68.1 msec MR ERO: 0.10 cm2 TR max richard: 271.3 cm/sec MV P1/2t max richard: 74.6 cm/sec TR max P.5 mmHg MVA(P1/2t): 3.2 cm2 PA V2 max: 74.2 cm/sec PA V2 mean: 41.2 cm/sec PA mean P.84 mmHg PA Accel Time: 0.08 sec MR flow rate: 57.5 cm3/sec MR PISA radius: 0.48 cm Reading Physician:02:42 PM
== END ==
PROVIDERS: PCP Physician Assistant; Visit Provider Physician Assistant
DX: I07.1 Rheumatic tricuspid insufficiency (principal); I10 Essential (primary) hypertension; R00.1 Bradycardia, unspecified; Z86.79 Personal history of other diseases of the circulatory system
CPT/HCPCS: 93306

== ENCOUNTER 2018-12-17 06:46 | Day surgery (SDC) | payer MEDICARE, BC, SELFPAY ==
[2018-12-13 13:37] VITALS: BMI 31.4
[2018-12-17] VITALS (8 sets, daily range): BP systolic 117–148; BP diastolic 68–100; PULSE 64–78; RESP 12–16; TEMP 36.1–36.6; O2SAT 94–99; BMI 31.4
--- NOTE | 2018-12-17 | DI.RAD.S_ITS ---
PROCEDURE: XR ANKLE RT 2V INDICATIONS: RIGHT ANKLE REVISION TECHNIQUE: 6 limited intraoperative fluoroscopic views of the ankle were acquired. COMPARISON: None. FINDINGS: Bones: Interval removal of distal syndesmotic screw previously transfixing the distal tibia/fibula. No acute fractures or dislocations. Ankle mortise is normally aligned. No suspicious bony lesions. Soft tissues: No tibiotalar joint effusion. Achilles tendon appears normal. Expected post surgical changes of the overlying soft tissues of the ankle. IMPRESSION: Postoperative changes from interval removal of distal syndesmotic screw from the right ankle. Dictated by: James Rendon M.D. on 12/17/2018 at 14:56 Approved by: James Rendon M.D. on 12/17/2018 at 14:58
--- NOTE | 2018-12-17 07:07 | PM.PREOP ---
Pre-operative Note Interval Note History & Physical reviewed/Exam performed by Physician: Yes Changes to H&P: No
[2018-12-17] MEDS: LACTATED RINGERS 1,000 ML 42 ML IV ×2 (07:15→10:26)
[2018-12-17] MEDS: MIDAZOLAM 2 MG/2 ML VIAL IV (07:40)
[2018-12-17] MEDS: CEFAZOLIN 2 GM/100 ML FROZ.PIGGY IV (08:05)
--- NOTE | 2018-12-17 08:29 | SUR.OPER ---
Lateral on padded OR bed with ruiz bag, head on pillow, gel axillary roll in place, bottom leg bent with gel pad under knee to foot, upper leg straight and supported with blankets and on sterile field. Upper arm supported by pillows and secured over bottom arm to padded arm board. Safety belt at hip, tape over blanket lower left leg.
[2018-12-17] MEDS: BUPIVACAINE 0.5% W/ EPI (PF) VIAL 30 ML INJ (08:39)
--- NOTE | 2018-12-17 09:08 | PM.PROC.1 ---
Procedures Date/Time Date of procedure: 12/17/18 Time of procedure: 07:45 Nerve Block Local anesthetic used: other (0.5% Ropivicaine) Location of anesthetic used: Sciatic Nerve Amount of anesthesia used (mL): 20 Nerve blocks: posterior tibial Procedure successful: Yes Patient tolerated procedure: well Complications: none Additional comments: Sterile prep of rigt lateral thigh. Ultrasound used to identify the right sciatic nerve. 1% Lidocaine used to anesthetize the skin and soft tissues. US used to guide a 21 Ga x 100 mm Pajunk needle towards the sciatic nerve. Positive stim with the PNS as well. Negative aspiration for blood. No pain on injection of 20 ml of 0.5% Ropivicaine.
[2018-12-17] MEDS: OXYCODONE/ACETAMINOPHEN 5/325 TABLET 1 TAB PO (11:00)
--- NOTE | 2018-12-17 14:52 | P.OP_ITS ---
Operative Date/Time/Diagnoses Date of procedure: 12/17/18 Time of procedure: 08:00 Pre-op diagnosis: 1. Closed fracture right ankle with nonunion [id number] 2. Painful orthopedic hardware [id number] Post-op diagnosis: same Procedure & Clinicians Procedure: 1. Revision open reduction and internal fixation right ankle fracture nonunion cpt code 56153 2. Bone graft of right proximal tibia- right proximal tibial bone graft CPT code 10667 3. Removal, internal fixation hardware right ankle, plate screws and syndesmotic screw cpt 99623 4. Neurolysis superficial peroneal nerve This procedure was performed with a 22 modifier for the complex revision case, through previous surgical bed and that required hardware removal, revision fracture fixation and bone graft--autograft taking approximately twice as long as the standard ankle fracture. Same procedure as scheduled: Yes Indications: Patient is a 68-year-old female that sustained a right ankle fracture approximately 5 months ago. This underwent open reduction internal fixation at outside institution. The patient has gone on to a nonunion of her fibula fracture confirmed on CT. She also has painful symptomatic distal hardware that bothers her daily and interrupts her sleep. Her infection labs have been negative. 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 R the risks, benefits and alternatives to the procedure were discussed with the patient in detail including infection, nerve damage, wound dehiscence, nonunion, malunion, symptomatic hardware, over correction or under correction of the deformity, incomplete relief of pain, inability return to the patient's side level function , generalized dissatisfaction with the surgical procedure and the outcome, deep vein thrombosis, pulmonary embolism, cardiopulmonary complications and . Patient understands that the healing bones and soft tissues would take approximately 3 months with full recovery may require 6-9 months. The patient also understands that is critical to elevate the extremity for the 1st 2-3 weeks after surgery to control swelling and pain. Patient was counseled in no way will be allowed on the surgical leg for approximately 6-12 weeks or until the patient is instructed that is safe to initiate weight-bearing. She will take 325 mg of aspirin starting on postop day 1 for DVT prophylaxis as she does not have other risk factors. She was received her cardiac clearance. Informed consent was signed in the office. Surgeon: Nikki Mcneal Click Yes if Unassisted: Yes Anesthesia Type: General and Peripheral nerve block Operative Notes Findings: Patient had a lateral placed locking recon style plate from the [employer] set this was palpable and quite prominent distally. This was removed along with all locking and nonlocking Synthes small frag screws as well as the syndesmotic screw. Prominent fibrous tissue was a rongeured off of the fibula bone. The segmental fibula fracture was exposed and the combination of blades and curettes were used to demonstrate the nonunion site. There was no bridging callus visible on exam there was a thick scar tissue in the superficial layers. Additionally there was a FiberWire suture that was used through the plate and around the segmental fragment. This was also excised. The ends of the nonunion were freshened with the curette rongeur and 2 mm drill bit and autograft from the Gerdy's tubercle side on the ipsilateral proximal tibia was packed predominantly anteriorly along the defect sites. The fracture was stabilized with a 10 hole 1/3 tubular locking plate from the [employer] Kathleen Lock set. One locking screw was used distally. Syndesmosis was retested under fluoroscopic guidance and found to be stable therefore no syndesmotic fixation was placed. Closure Type: primary Specimen(s): other (Micro-nonunion tissue) Implants & Drains: Ten hole 1/3 tubular locking plate [employer] Kathleen Lock set. 3.5 cortical screws x4, 3.5 cancellous screw x1, 3.5 locking screw x 1 Applied: other (Splint) Estimated Blood Loss (mL): 15 Blood products transfused: none Tourniquet time (min): 90 Procedure in detail: The patient was seen in the preoperative area site of surgery was marked informed consent confirmed. The patient was then taken back to the operating room by the anesthesia team. A popliteal block was placed for postoperative pain control by the anesthesia team. General anesthesia was then administered. Patient was positioned in the lateral position on a beanbag all bony prominences were well padded. A well-padded axillary roll was placed. A well-padded thigh tourniquet was placed. The patient was prepped and draped in the standard sterile fashion after a 3 step prep. Formal time-out was performed confirming the patient's side and site of surgery and administration of appropriate preoperative antibiotics. All were in agreement. An Esmarch bandage was utilized for exsanguination the tourniquet was elevated to 250 mm of mercury and stayed there for approximately 90 min. Attention was turned to the ankle. The previous incision was reopened through skin and subcutaneous tissues this came directly down on the lateral plate. The superficial peroneal nerve was noted to be directly along the incision site encased in scar overlying the plate. This was carefully dissected and reflected anteriorly and protected throughout the case. The reconstruction plate and screws was removed. Syndesmotic screw was also removed. Care was taken dissecting posteriorly the peroneal tendons were reflected posterior. Prominences on the fibula after the plate removal were rongeured off. Additionally there was FiberWire in the wound that was used to hold the segmental fragment in place into the plate. This was also removed. Was noted that the fracture was out to length and in good alignment therefore a 10 hole 1/ 3 tubular locking plate from the [employer] Kathleen Lock system was selected and carefully positioned in a posterior lateral position. Care was taken place and this posterior laterally but away from the peroneal groove. This was carefully positioned to have minimal prominence. The 1/3 tubular plate was provisionally placed down to bone with a cancellous screw distally and a cortical screw proximally and centrally. This held excellent alignment. Attention was turned to the nonunion sites. There had a segmental fibula fracture with nonunion at both ends. The nonunion sites were identified and the ends were freshened with a curette, rongeur and a 2 mm drill bit was used to drill multiple holes at either ends of the fracture to facilitate bleeding bone. Once this was done, attention was turned to obtaining the autograft bone. Proximal tibial autograft: Attention was turned to the knee. Bony landmarks were marked out on the knee including the patella patellar tendon tibial tubercle but Gerdy's tubercle and fibular head. 10 cc of 0.5% Marcaine and epinephrine were injected around the Gerdy's tubercle site for anesthesia and hemostasis. An oblique incision aiming lateral proximal to inferior medial was drawn out over Gerdy's tubercle. This was taken down through the skin subcutaneous tissue with care to stay anterior to the anterior compartment musculature. This was taken down to the bone directly over Gerdy's tubercle and the periosteum was elevated and reflected. A 2 mm drill was used to guy out an approximately 1 cm cortical window. Next an osteotome was used to connect the drill holes and removed the cortical window exposing the metaphyseal bone. Curettes were used to scoop out the cancellous autograft. Care was taken to not penetrate the articular surface while obtaining the bone graft. Once ample graft was obtained this was placed at the nonunion sites proximally and distally at the segmental fibula fracture. With this completed approximately 15 cc of cancellous chips allograft was utilized to repack the proximal tibia bone graft site and cortical window was replaced. The irrigation was completed and the wound was closed in layers with 2 O Vicryl deep for 0 Monocryl subcutaneously and 3 O nylon in the skin. Attention was returned to the ankle fracture. Once the bone graft was obtained and placed appropriately the remainder of the drill holes were filled with cortical nonlocking screws providing appropriate fixation proximal and distal to the fracture sites. Under fluoroscopic guidance this was confirmed with AP mortise and lateral imaging. Additionally the syndesmosis was stressed under live fluoroscopy with external rotation and no widening was observed. The syndesmosis was felt to be stable and no additional fixation was placed. Deep tissue was carefully closed over the bone graft site wound was irrigated, tourniquet was released and hemostasis was achieved. Wound was closed in layers with 2 O Vicryl, 4 0 Monocryl, 3 O nylon in the skin. Sterile dressing with gauze, Xeroform, Webril, a U splint were placed. The patient was awoken from anesthesia and taken to PACU in good condition. There no known immediate complications from this procedure. All counts were correct. Complications: none Condition: stable Disposition: PACU Plan for aftercare: Patient will be nonweightbearing on the right lower extremity. She will elevate above the heart level. She will start 325 mg of aspirin for DVT prophylaxis on postop day 1. She will follow up in 2 weeks for wound check and transition to a boot, and x-rays. She will remain nonweightbearing for minimum of 6 weeks postoperatively.
== END 2018-12-17 11:32 | disposition home or self-care (01) ==
PROVIDERS: PCP Physician Assistant; Visit Provider Orthopaedic Surgery Foot and Ankle Surgery
PROC: 0SSF04Z Reposition Right Ankle Joint with Internal Fixation Device, Open Approach (ICD-10-PCS; CPT 27814; principal; 2018-12-17 07:45)
DX: T84.84XA Pain due to internal orthopedic prosthetic devices, implants and grafts, initial encounter (principal); S82.891K Other fracture of right lower leg, subsequent encounter for closed fracture with nonunion; Z68.31 Body mass index [BMI] 31.0-31.9, adult; E66.9 Obesity, unspecified; I10 Essential (primary) hypertension; E11.9 Type 2 diabetes mellitus without complications; I25.10 Atherosclerotic heart disease of native coronary artery without angina pectoris; M19.90 Unspecified osteoarthritis, unspecified site; G89.18 Other acute postprocedural pain
CPT/HCPCS: 27814; 20902; 64445; 73610; 76000; 87070; 87075; 87205; J0690; J1100; J2250; J2405; J2704; J3010

== ENCOUNTER → 2019-06-25 13:14 | Outpatient (CLI) | payer MEDICARE, BC, SELFPAY ==
--- NOTE | 2019-06-25 13:17 | DI.MRI.S_ITS ---
PROCEDURE: MR LUMBAR SPINE WO CON INDICATIONS: Low back pain with radiculopathy left leg TECHNIQUE: Noncontrast sagittal T1 spin echo and T2 fast echo, sagittal STIR, axial T1 and T2 fast spin echo through the lumbar spine. In cases with scoliosis, additional coronal T2 fast spin echo may be performed. COMPARISON: [facility], MR, L-SPINE WITHOUT CONTRAST, 07/08/2016, 8:47. [facility], CR, L-SPINE 2-3 VIEWS, 08/22/2014, 9:13. [facility], CR, L-SPINE 2-3 VIEWS, 08/30/2015, 15:57. FINDINGS: Image quality: Diagnostic, with note made of motion artifact. Alignment and Curvature: Grade 1 anterolisthesis is seen at L5-S1, with associated apparent pars defects. Bone Marrow: Marrow is of normal overall signal. No acute vertebral body compression fractures. Spinal Cord: Conus medullaris terminates at the L1 level. Visualized cord demonstrates normal signal and size. Paraspinous Soft Tissues: No paravertebral masses. T10-T11: Moderate loss of disc height is seen. Loss of disc signal is seen. Moderate bilateral neural foraminal narrowing is seen, right worse than left. No significant central canal narrowing is seen. T11-T12: Mild disc bulge is seen. There is minimal to mild bilateral neural foraminal narrowing seen and no significant central canal narrowing is seen. T12-L1: Normal appearance. L1-L2: The disc height is well-preserved. Loss of disc signal is seen at this level. Mild generalized disc bulge is seen. There is moderate left-sided and no right-sided neural foraminal narrowing seen. No significant central canal narrowing is seen. When comparison is made with the prior examination, these findings are similar. L2-L3: The disc height is well-preserved. Loss of disc signal is seen at this level. Mild to moderate disc bulge is seen. Mild bilateral neural foraminal narrowing is seen, left worse than right. Minimal central canal narrowing is seen. When comparison is made with the prior examination, these findings are similar. L3-L4: Moderate loss of disc height is seen. Loss of disc signal is seen. Moderate generalized disc bulge is seen. [id number] facet hypertrophy is seen. There is moderate right-sided and mild left-sided neural foraminal narrowing seen. These imaging findings have progressed compared to the prior study. L4-L5: Moderate disc bulge is seen, which is eccentric to the right. Moderate to prominent facet hypertrophy is seen, right worse than left. There is moderate bilateral neural foraminal narrowing seen, right worse than left. At least moderate central canal narrowing is seen. The previously seen central/left disc extrusion has clearly improved compared to 2016. L5-S1: At least moderate loss of disc height and disc signal can be seen. Moderate disc bulge is seen, which is eccentric to the left. Prominent facet hypertrophy is seen. There is moderate right-sided and moderate to severe left-sided neural foraminal narrowing seen. There is again seen upon the exiting left L5 nerve root. Mild central canal narrowing is seen. When comparison is made with the prior examination, these findings are similar. IMPRESSION: The previously seen disc extrusion at L4-L5 has clearly improved compared to 2016. Multiple levels of degenerative change are seen, which have slightly progressed at the L3-L4 level. Grade 1 anterolisthesis is seen at L5-S1. Dictated by: Jean Sutton M.D. on 06/27/2019 at 9:24 Approved by: Jean Sutton M.D. on 06/27/2019 at 9:33
== END ==
PROVIDERS: PCP Physician Assistant; Visit Provider Physician Assistant
DX: M47.26 Other spondylosis with radiculopathy, lumbar region (principal); M47.27 Other spondylosis with radiculopathy, lumbosacral region; M43.17 Spondylolisthesis, lumbosacral region; M51.16 Intervertebral disc disorders with radiculopathy, lumbar region; M51.17 Intervertebral disc disorders with radiculopathy, lumbosacral region; M48.061 Spinal stenosis, lumbar region without neurogenic claudication; M48.07 Spinal stenosis, lumbosacral region
CPT/HCPCS: 72148

== ENCOUNTER → 2019-06-29 10:24 | Outpatient (CLI) | payer MEDICARE, BC, SELFPAY ==
[2019-06-29 11:47] LABS: Hemoglobin A1C% w Est Avg Glu 5.7 % (4.0-6.0)
[2019-06-29 12:08] LABS: Alanine Aminotransferase 15 IU/L (9-52); Albumin Globulin Ratio 1.2 (1.0-2.8); Alkaline Phosphatase 104 U/L (38-126); Aspartate Aminotransferase 25 IU/L (14-36); Bilirubin Total 0.4 mg/dL (0.2-1.3); Blood Urea Nitrogen 18 mg/dL (7-17); Calcium 9.8 mg/dL (8.4-10.2); Carbon Dioxide 35 mmol/L (22-32); Chloride 97 mmol/L (98-107); Cholesterol 138 mg/dL (140-199); Globulin 3.4 g/dL (1.7-4.1); Glucose 117 mg/dL (80-110); HDL Cholesterol 45 mg/dL (40-60); HEMOLYSIS < 15 (0-50); LDL Cholesterol Calculated 73 mg/dL (<100); Potassium 3.6 mmol/L (3.4-5.1); Sodium 139 mmol/L (137-145); Total Protein 7.4 g/dL (6.3-8.2); Triglycerides 98 mg/dL (35-150)
[2019-06-29 12:33] LABS: Thyroid Stimulating Hormone 3.18 uIU/mL (0.47-4.68)
== END ==
PROVIDERS: PCP Physician Assistant; Visit Provider Physician Assistant
DX: E03.9 Hypothyroidism, unspecified (principal); I10 Essential (primary) hypertension; I25.10 Atherosclerotic heart disease of native coronary artery without angina pectoris; R73.02 Impaired glucose tolerance (oral)
CPT/HCPCS: 36415; 80053; 80061; 83036; 84443

== ENCOUNTER → 2019-08-23 10:00 | Outpatient (CLI) | payer MEDICARE, BC, SELFPAY ==
[2019-08-23 11:05] LABS: Alanine Aminotransferase 24 IU/L (9-52); Albumin 3.9 g/dL (3.5-5.0); Albumin Globulin Ratio 1.4 (1.0-2.8); Alkaline Phosphatase 96 U/L (38-126); Aspartate Aminotransferase 23 IU/L (14-36); Bilirubin Total 0.5 mg/dL (0.2-1.3); Blood Urea Nitrogen 19 mg/dL (7-17); Calcium 9.6 mg/dL (8.4-10.2); Carbon Dioxide 29 mmol/L (22-32); Chloride 102 mmol/L (98-107); Globulin 2.8 g/dL (1.7-4.1); Glucose 107 mg/dL (80-110); HEMOLYSIS < 15 (0-50); Magnesium 1.9 mg/dL (1.6-2.3); Potassium 4.3 mmol/L (3.4-5.1); Sodium 139 mmol/L (137-145); Total Protein 6.7 g/dL (6.3-8.2)
[2019-08-25 09:27] LABS: Lipoprofile NMR SEE SEPERATE REPORT
== END ==
PROVIDERS: PCP Physician Assistant; Visit Provider Specialist
DX: E78.2 Mixed hyperlipidemia (principal); I10 Essential (primary) hypertension
CPT/HCPCS: 36415; 80053; 83704; 83735